=== PATIENT | female | born 1985 | race American Indian/Alaskan Native ===

== ENCOUNTER 2017-01-20 01:29 | Emergency (ER) | payer OTHER ==
[2017-01-20] MEDS ORDERED: TYLENOL PO ONE (01:55)
[2017-01-20 03:19] LABS: Basophils % (Auto) 0.4 % (0.0-1.8); Eosinophils % (Auto) 1.2 % (0.0-4.3); Hematocrit 44.1 % (30.3-42.9); Hemoglobin 14.5 gm/dl (10.1-14.3); Mean Corpuscular HGB Conc 33 % (30-34); Mean Corpuscular Hemoglobin 26 pg (28-32); Mean Corpuscular Volume 80 fl (79-97); Platelet Count 310 K/mm3 (140-440); Red Blood Count 5.53 M/mm3 (3.65-5.03); Red Cell Distribution Width 14.6 % (13.2-15.2); White Blood Count 8.3 K/mm3 (4.5-11.0)
[2017-01-20 03:39] LABS: Alanine Aminotransferase 24 units/L (7-56); Albumin 4.3 g/dL (3.9-5); Albumin/Globulin Ratio 1.1 %; Alkaline Phosphatase 86 units/L (35-129); Anion Gap 19 mmol/L; Blood Urea Nitrogen 10 mg/dL (7-17); Calcium 9.4 mg/dL (8.4-10.2); Carbon Dioxide 26 mmol/L (22-30); Chloride 101.8 mmol/L (98-107); Glucose 107 mg/dL (65-100); Potassium 3.6 mmol/L (3.6-5.0); Sodium 143 mmol/L (137-145); Total Protein 8.3 g/dL (6.3-8.2)
[2017-01-20 11:59] LABS: Urine Drugs of Abuse Note Disclamer
[2017-01-20 12:09] LABS: Bacteria,Urine 1+ /HPF (Negative); Bilirubin,Urine NEG (Negative); Blood,Urine NEG (Negative); Ketones,Urine NEG (Negative); Leukocyte Esterase,Urine NEG (Negative); Mucus,Urine 1+ /HPF; Nitrite,Urine NEG (Negative); Urobilinogen,Urine < 2.0 mg/dL (<2.0)
--- NOTE | 2017-01-20 20:46 | Emergency Department Report ---
ED Psych HPI - General Chief Complaint: Psych Stated Complaint: med refill Time Seen by Provider: 01/20/17 19:33 Source: patient Mode of arrival: Ambulatory Limitations: No Limitations - History of Present Illness MD Complaint: other (denies hi, si, no av mcmillan. out of li. new to area. reports being on zyprexa at one point. ) -: Gradual (out of meds for 1 m) Associated Psychiatric Symptoms: none History of same: Yes (bipolar) Improves With: medication Worsens With: none Associated Symptoms: denies other symptoms Treatments Prior to Arrival: none - Related Data Previous Rx's Medication Instructions Recorded Last Taken Type Lititz Carbonate 300 mg PO BID #60 tablet 01/20/17 Unknown Rx Allergies Allergy/AdvReac Type Severity Reaction Status Date / Time No Known Allergies Allergy Verified 01/20/17 01:49 ED Review of Systems ROS: Stated complaint: MENTAL HEALTH EVALUATION Other details as noted in HPI Comment: All other systems reviewed and negative Constitutional: no symptoms reported Eyes: as per HPI. denies: eye pain ENT: as per HPI. denies: ear pain, throat pain Respiratory: no symptoms reported, see HPI. denies: cough, orthopnea Cardiovascular: as per HPI. denies: chest pain, palpitations, dyspnea on exertion, orthopnea Endocrine: no symptoms reported, see HPI. denies: excessive sweating, flushing , intolerance to cold, intolerance to heat Gastrointestinal: as per HPI. denies: abdominal pain, nausea, vomiting Genitourinary: as per HPI. denies: urgency, dysuria Musculoskeletal: as per HPI. denies: back pain Skin: as per HPI. denies: rash, lesions Neurological: as per HPI. denies: headache, weakness, numbness, paresthesias, confusion, abnormal gait, vertigo Psychiatric: as per HPI, other (hx bipolar off meds. new to area). denies: anxiety, depression, auditory hallucinations, visual hallucinations, homicidal thoughts, suicidal thoughts Hematological/Lymphatic: as per HPI ED Past Medical Hx - Past Medical History Previous Medical History?: Yes Hx Hypertension: No Hx CVA: No Hx Heart Attack/AMI: No Hx Congestive Heart Failure: No Hx Diabetes: No Hx Deep Vein Thrombosis: No Hx Pulmonary Embolism: No Hx GERD: No Hx Liver Disease: No Hx Renal Disease: No Hx of Cancer: No Hx Sickle Cell Disease: No Hx Arthritis: No Hx Headaches / Migraines: No Hx Seizures: No Hx Kidney Stones: No Hx Psychiatric Treatment: No Hx Asthma: No Hx COPD: No Hx Tuberculosis: No Hx Dementia: No Hx HIV: No Additional medical history: BIPOLAR - Surgical History Past Surgical History?: No Hx Coronary Stent: No Hx Open Heart Surgery: No Hx Pacemaker: No Hx Internal Defibrillator: No Hx Cholecystectomy: No Hx Appendectomy: No Hx Breast Surgery: No - Family History Family history: no significant - Social History Smoking Status: Never Smoker Substance Use Type: None - Medications Home Medications: Home Medications Medication Instructions Recorded Confirmed Last Taken Type Lititz Carbonate 300 mg PO BID #60 tablet 01/20/17 Unknown Rx ED Physical Exam - General Limitations: No Limitations General appearance: alert, in no apparent distress - Head Head exam: Present: atraumatic - Eye Eye exam: Present: normal appearance, PERRL, EOMI - ENT ENT exam: Present: normal exam - Neck Neck exam: Present: normal inspection - Respiratory Respiratory exam: Present: normal lung sounds bilaterally - Cardiovascular Cardiovascular Exam: Present: regular rate, normal rhythm - GI/Abdominal GI/Abdominal exam: Present: soft - Rectal Rectal exam: Present: deferred - Extremities Exam Extremities exam: Present: normal inspection, full ROM - Back Exam Back exam: Present: normal inspection - Neurological Exam Neurological exam: Present: alert, altered, oriented X3, CN II-XII intact. Absent: normal gait, abnormal gait, motor sensory deficit, reflexes normal - Psychiatric Psychiatric exam: Present: normal affect, normal mood, other (ws tired of waiting and wanted to leave at one time in stay). Absent: depressed, agitated, anxious, flat affect, manic, homicidal ideation, suicidal ideation ED Course Vital Signs 01/20/17 01/20/17 01/20/17 01:49 07:49 19:23 Temperature 98.4 F 97.7 F Pulse Rate 87 79 84 Respiratory 18 15 16 Rate Blood Pressure 124/86 159/105 Blood Pressure 101/48 [Right] O2 Sat by Pulse 99 100 99 Oximetry - Reevaluation(s) Reevaluation #1: 01/20/[address] Ma Mental health called for recommendation on meds They have suggested Li and outpt follow up. see note pt updated ED Medical Decision Making - Lab Data Result diagrams: 01/20/17 02:58 01/20/17 02:58 - Medical Decision Making no si no hi no a/v mcmillan no paraonia uds neg preg neg cooperative new to area needs rx and follow up plan Critical care attestation.: If time is entered above; I have spent that time in minutes in the direct care of this critically ill patient, excluding procedure time. ED Disposition Clinical Impression: Bipolar 1 disorder, Medication refill Disposition: OP ADMIT IP TO THIS HOSP Is pt being admited?: No Does the pt Need Aspirin: No Condition: Stable Instructions: Bipolar Disorder (ED) Additional Instructions: follow up with psych as you have been instructed by the mental health staff take med as ordered rest eat healthy diet no drugs and no alcohol Referrals: PRIMARY CARE, [facility] Time of Disposition: 20:51
[2017-01-20 21:16] VITALS: BP 112/62
== END 2017-01-20 21:16 | disposition admitted as inpatient to this hospital (09) ==
LOC: ED 01:29
DX: F31.9 Bipolar disorder, unspecified (principal); Z76.0 Encounter for issue of repeat prescription
CPT/HCPCS: 36415; 80053; 80178; 80307; 81001; 84703; 85025; 99284; G0480; 80320

== ENCOUNTER 2017-01-20 21:59 | Emergency (ER) | payer OTHER ==
[2017-01-20 23:40] VITALS: BP 138/94
[2017-01-21] MEDS ORDERED: TYLENOL ONE (00:39)
[2017-01-21] MEDS ORDERED: TYLENOL PO ONE (00:47)
== END 2017-01-21 06:14 | disposition left against medical advice (07) ==
LOC: ED 21:59
DX: R51 Headache (principal); Z53.21 Procedure and treatment not carried out due to patient leaving prior to being seen by health care provider

== ENCOUNTER 2017-01-21 09:17 | Emergency (ER) | payer OTHER ==
[2017-01-21 09:30] VITALS: BP 133/87
== END 2017-01-21 09:30 | disposition left against medical advice (07) ==
LOC: ED 09:17
DX: M54.2 Cervicalgia (principal); M79.1 Myalgia; Z53.21 Procedure and treatment not carried out due to patient leaving prior to being seen by health care provider

== ENCOUNTER 2017-12-22 03:08 | Emergency (ER) | payer OTHER ==
[2017-12-22 04:09] VITALS: BP 124/85
== END 2017-12-22 06:37 | disposition left against medical advice (07) ==
LOC: ED 03:08
DX: M54.9 Dorsalgia, unspecified (principal); Z53.21 Procedure and treatment not carried out due to patient leaving prior to being seen by health care provider